=== PATIENT | male | born 1985 | race Caucasian/White ===

== ENCOUNTER 2019-01-25 11:30 | Emergency (ER) | payer SELFPAY ==
[~2019-01-25] VITALS: Ht 170.1 cm; Wt 83.0 kg
[~2019-01-25 11:30] MED LIST: CEPH500C PO; HYDR-1231 PO; NAPR-243 PO
--- NOTE | 2019-01-25 12:14 | ED GU-Female ---
General Chief Complaint: General Problems/Pain Stated Complaint: LOWER ABD/GROIN PAIN Nursing Triage Note: AMB TO [facility] REPORTS HAS HAD L LOWE ABD PAIN INTERMITTEN FOR 2 DAYS AT TIMES GOES DOWN BOTH R AND L GROWN. MOVEMENT MAKES IT WORSE. ADMITS TO USING METH 2 DAYS Nursing Sepsis Screen: No Definite Risk Source: patient Exam Limitations: no limitations History of Present Illness Date Seen by Provider: Jan 25, 2019 Time Seen by Provider: 12:14 Allergies and Home Medications Allergies Coded Allergies: tramadol (Unverified Allergy, Mild, HIVES, 06/19/13) Patient Home Medication List Home Medication List Reviewed: Yes Past Kboxrfy-Mizbce-Cmkodh Hx Patient Social History Alcohol Use: Regular Use Alcohol Beverage of Choice: Beer Recreational Drug Use: Yes (SMOKES POT DAILY) Smoking Status: Current Everyday Smoker Type Used: Cigars Recent Foreign Travel: No Contact w/Someone Who Travel: No Recent Infectious Disease Expo: No Past Medical History Reproductive Disorders: No Adverse Reaction/Blood Tranf: No Physical Exam Vital Signs Vital Signs - First Documented 01/25/19 11:34 Temp 36.2 Pulse 70 Resp 18 B/P (MAP) 146/85 (105) Pulse Ox 97 O2 Delivery Room Air Capillary Refill : Less Than 3 Seconds Height, Weight, BMI Height: 5'7" Weight: 170lbs. oz. 77.207394ny; 28.00 BMI Method:Stated Progress/Results/Core Measures Suspected Sepsis Recent Fever Within 48 Hours: No Infection Criteria Present: None New/Unexplained Altered Menta: No Sepsis Screen: No Definite Risk SIRS Temperature: Pulse: 70 Respiratory Rate: 18 Blood Pressure 146 /85 Mean: 105 Results/Orders Lab Results Laboratory Tests Test 01/25/19 12:33 Range/Units Urine Color YELLOW Urine Clarity CLEAR Urine pH 6.5 5-9 Urine Specific [place] 1.010 L 1.016-1.022 Urine Protein NEGATIVE NEGATIVE Urine Glucose (UA) NEGATIVE NEGATIVE Urine Ketones NEGATIVE NEGATIVE Urine Nitrite NEGATIVE NEGATIVE Urine Bilirubin NEGATIVE NEGATIVE Urine Urobilinogen NORMAL NORMAL MG/DL Urine Leukocyte Esterase NEGATIVE NEGATIVE Urine RBC (Auto) NEGATIVE NEGATIVE Urine RBC NONE /HPF Urine WBC NONE /HPF Urine Squamous Epithelial Cells RARE /HPF Urine Crystals NONE /LPF Urine Bacteria NEGATIVE /HPF Urine Casts NONE /LPF Urine Mucus NEGATIVE /LPF Urine Culture Indicated NO My Orders Orders - MIL RODRIGUEZ Ed Iv/Invasive Line Start (01/25/19 12:31) Ua Culture If Indicated (01/25/19 12:31) Ns Iv 1000 Ml (Sodium Chloride 0.9%) (01/25/19 12:31) Ketorolac Injection (Toradol Injection) (01/25/19 12:31) Vital Signs/I&O 01/25/19 01/25/19 11:34 13:12 Temp 36.2 Pulse 70 70 Resp 18 18 B/P (MAP) 146/85 (105) 146/85 Pulse Ox 97 97 O2 Delivery Room Air Room Air Capillary Refill : Less Than 3 Seconds Blood Pressure Mean: 105 POS Departure Departure-Patient Inst. Referrals: NO,LOCAL PHYSICIAN (PCP/Family) Primary Care Physician MIL RODRIGUEZ Jan 25, 2019 12:14 POS
[2019-01-25] MEDS ORDERED: NS IV 1000 ML 1,000 ML IV ONE (12:31)
[2019-01-25] MEDS ORDERED: KETOROLAC 30 MG/ML VIAL IVP STA (12:31)
[2019-01-25 12:38] LABS: BILIRUBIN,URINE NEGATIVE (NEGATIVE); CLARITY,URINE CLEAR; COLOR,URINE YELLOW; GLUCOSE, URINE (UA) NEGATIVE (NEGATIVE); KETONES,URINE NEGATIVE (NEGATIVE); LEUKOCYTE ESTERASE ,URINE NEGATIVE (NEGATIVE); NITRITE,URINE NEGATIVE (NEGATIVE); PH,URINE 6.5 (5-9); PROTEIN,URINE NEGATIVE (NEGATIVE)
[2019-01-25 12:49] LABS: BACTERIA,URINE NEGATIVE /HPF; SQUAMOUS EPITHELIAL CELL,UR RARE /HPF
--- NOTE | 2019-01-25 12:50 | NUR ---
TO ROOM TO START IV PATIENT ASKED HOW MUCH LONGER TOLD APX 2 HRS SAID I CAN'T BE HER THAT LONG I HAVE SOME PLACE TO BE. ASKED TO TALK WITH Jose POTTER.
--- NOTE | 2019-01-25 13:04 | NUR ---
Jose RODRIGUEZ IN ROOM TALKING WITH PATIENT.
[2019-01-25 13:12] VITALS: BP 146/85
--- NOTE | 2019-01-25 13:12 | NUR ---
SIGNED AMA DID NOT WANT TO WAIT
== END 2019-01-25 13:12 | disposition left against medical advice (07) ==
LOC: EDUNIT# 11:30 → ER 11:31
DX: R10.30 Lower abdominal pain, unspecified (principal); F17.290 Nicotine dependence, other tobacco product, uncomplicated; Z88.5 Allergy status to narcotic agent
CPT/HCPCS: 81000; 99282

== ENCOUNTER 2019-10-21 11:26 | Emergency (ER) | payer SELFPAY ==
[~2019-10-21] VITALS: Ht 170.2 cm; Wt 74.8 kg
[2019-10-21 11:39] VITALS: BP 124/79
[2019-10-21] MEDS ORDERED: HYDR-3870 PO (11:53)
[2019-10-21] MEDS ORDERED: DOXY100T2 PO (11:53)
--- NOTE | 2019-10-21 11:54 | ED Lower Extremity ---
General Stated Complaint: L LEG SWELLING/R HAND INJ Source: patient Exam Limitations: no limitations History of Present Illness Date Seen by Provider: Oct 21, 2019 Time Seen by Provider: 11:51 Initial Comments To ER with swelling and redness and pain to the left anterior lower leg for the past 4 days. Onset: other Severity: moderate Pain/Injury Location: left leg Method of Injury: unknown Modifying Factors: Worse With Movement Allergies and Home Medications Allergies Coded Allergies: tramadol (Unverified Allergy, Mild, HIVES, 06/19/13) Home Medications Doxycycline Hyclate 100 Mg Tablet, 100 MG PO BID Prescribed by: JENIFFER OSPINA on 10/21/19 1153 Hydrocodone/Acetaminophen 1 Each Tablet, 1 EACH PO Q4-6HR PRN for PAIN-MODERATE Prescribed by: JENIFFER OSPINA on 10/21/19 1154 Patient Home Medication List Home Medication List Reviewed: Yes Review of Systems Constitutional: see HPI EENTM: see HPI Respiratory: no symptoms reported Cardiovascular: no symptoms reported Genitourinary: no symptoms reported Musculoskeletal: no symptoms reported Skin: see HPI Psychiatric/Neurological: No Symptoms Reported Past Gkzdpkr-Ciypeh-Ixgdrb Hx Patient Social History Alcohol Beverage of Choice: Beer Type Used: Cigars Past Medical History Surgeries: Yes (left index finger amputation, right leg fx.) Orthopedic Respiratory: No Cardiac: No Neurological: No Reproductive Disorders: No Genitourinary: No Gastrointestinal: No Musculoskeletal: Yes (CTS) Fractures Endocrine: No Cancer: No Psychosocial: Yes Anxiety, Depression Adverse Reaction/Blood Tranf: No Family Medical History Cancer, Psychiatric Problems, Other Conditions/Hx Physical Exam Vital Signs Vital Signs - First Documented 10/21/19 11:39 Temp 36.8 Pulse 75 Resp 18 B/P (MAP) 124/79 (94) Pulse Ox 98 O2 Delivery Room Air Capillary Refill : Height, Weight, BMI Height: 5'7" Weight: 170lbs. oz. 77.635903rt; 28.00 BMI Method:Stated General Appearance: WD/WN, no apparent distress HEENT: PERRL/EOMI, normal ENT inspection Respiratory: no respiratory distress, no accessory muscle use Hips: bilateral hip non-tender, bilateral hip normal inspection, bilateral hip normal range of motion Legs: left leg other (5 cm erythematous fluctuant abscess overlying the anterior tibia on the left.) Knees: bilateral knee non-tender, bilateral knee normal inspection, bilateral knee normal range of motion Ankles: bilateral ankle non-tender, bilateral ankle normal inspection, bilateral ankle normal range of motion Feet: bilateral foot non-tender, bilateral foot normal inspection, bilateral foot normal range of motion Neurologic/Psychiatric: alert, normal mood/affect, oriented x 3 Procedures/Interventions I&D : Blade Size: 11 Progress Anesthetized with 2 mL of lidocaine without epinephrine. Incised with an 11 blade scalpel, loculations broken up as the wound was probed with a sterile Q- tip. Pt did not tolerated well, screaming, jerking during procedure. Appears under influence of stimulant. Progress/Results/Core Measures Results/Orders My Orders Orders - JENIFFER OSPINA APRN Hydrocodone/Apap 5/325 Tablet (Lortab 5 (10/21/19 12:00) Doxycycline Hyclate Tablet (Vibramycin T (10/21/19 12:00) Wound Culture (10/21/19 11:49) Lidocaine 1% Inj 20 Ml (Xylocaine 1% Inj (10/21/19 12:00) Medications Given in ED Current Medications Medications Dose Ordered Sig/Samara Route Start Time Stop Time Status Last Admin Dose Admin Acetaminophen/ Hydrocodone Bitart 1 tab ONCE ONCE PO 10/21/19 12:00 10/21/19 12:01 DC 10/21/19 11:59 1 TAB Lidocaine HCl 2 ml ONCE ONCE INJ 10/21/19 12:00 10/21/19 12:01 DC 10/21/19 12:00 2 ML Vital Signs/I&O 10/21/19 11:39 Temp 36.8 Pulse 75 Resp 18 B/P (MAP) 124/79 (94) Pulse Ox 98 O2 Delivery Room Air Departure Impression Primary Impression: Abscess of leg Disposition: HOME, SELF-CARE Condition: Stable Departure-Patient Inst. Decision time for Depature: 11:52 Referrals: NO,LOCAL PHYSICIAN (PCP/Family) Primary Care Physician Patient Instructions: Abscess Incision and Drainage (DC) Add. Discharge Instructions: 1. Antibiotics and pain medicine as directed. Return to ER for any concerns. Scripts Hydrocodone/Acetaminophen (Lorcet 5-325 mg Tablet) 1 Each Tablet 1 EACH PO Q4-6HR PRN for PAIN-MODERATE MDD 10 for 7 Days, #10 TAB Prov: JENIFFER OSPINA APRN 10/21/19 Doxycycline Hyclate (Doxycycline Hyclate) 100 Mg Tablet 100 MG PO BID, #20 TAB 0 Refills Prov: JENIFFER OSPINA APRN 10/21/19 JENIFFER OSPINA APRN Oct 21, 2019 11:54
[2019-10-21] MEDS ORDERED: HYDROcodone/APAP 5 MG/325 MG (LORTAB) TAB PO ONE (12:00)
[2019-10-21] MEDS ORDERED: DOXYCYCLINE 100 MG (VIBRAMYCIN) TABLET PO SCH (12:00)
[2019-10-21] MEDS ORDERED: LIDOCAINE 1% INJ 20 ML 20 ML VIAL INJ ONE (12:00)
--- OUTSIDE RECORDS SUMMARY | 2019-10-21 17:32 | XMS REPORT ---
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 62588990 ALLERGIES No Information ENCOUNTERS Encounter Location Date Diagnosis [facility] [address] [address] Jun, [facility] [address] [address] Jun, [facility] [address] [address] Dec, [facility] [address] [address] Dec, [facility] [address] [address] Dec, [facility] [address] [address] Dec, [place] [address] [place], [place] [id number] Nov, [facility] [address] [address] Nov, [place] [address] [place], [place] [id number] Sep, [facility] [address] [address] Sep, IMMUNIZATIONS No Known Immunizations SOCIAL HISTORY Never Assessed REASON FOR VISIT PLAN OF CARE VITAL SIGNS Height 67 in 2013-10-04 Weight 162 lbs 2013-10-04 Temperature 97.3 degrees Fahrenheit 2013-10-04 Heart Rate 76 bpm 2013-10-04 Respiratory Rate 16 2013-10-04 Blood pressure systolic 110 mmHg 2013-10-04 Blood pressure diastolic 68 mmHg 2013-10-04 MEDICATIONS Unknown Medications RESULTS No Results PROCEDURES No Known procedures INSTRUCTIONS MEDICATIONS ADMINISTERED No Known Medications
--- OUTSIDE RECORDS SUMMARY | 2019-10-21 17:32 | XMS REPORT | Continuity of Care Document ---
Author Organization Unknown Address Unknown Phone Unavailable Allergies Active Description Code Type Severity Reaction Onset Reported/Identified Relationship to Patient Clinical Status Yes tramadol [id number] Drug Allergy Mild HIVES 06/19/2013 Medications There is no data. Problems Date Dx Coded Attending Type Code Diagnosis Diagnosed By 09/02/2013 JENIFFER OSPINA APRN Ot 338.29 OTHER CHRONIC PAIN 09/02/2013 JENIFFER OSPINA APRN Ot 729 .5 PAIN IN LIMB 10/04/2013 YON RODRÍGUEZ APRN 296.90 MOOD DISORDER 10/04/2013 YON RODRÍGUEZ APRN 72 9.5 PAIN- LEG 10/04/2013 YON RODRÍGUEZ APRN 296.90 MOOD DISORDER 10/04/2013 YON RODRÍGUEZ APRN 72 9.5 PAIN- LEG 11/22/2013 YON RODRÍGUEZ APRN 46 1.9 SINUSITIS ACUTE 11/22/2013 YON RODRÍGUEZ APRN T 523.31 AGGRESSIVE PERIODONTITIS LOCALIZED 01/28/2019 MIL MORGAN Ot F17.290 NICOTINE DEPENDENCE, OTHER TOBACCO PRODU 01/28/2019 MIL MORGAN Ot R10.30 LOWER ABDOMINAL PAIN, UNSPECIFIED 01/28/2019 MIL MORGAN Ot Z88.5 ALLERGY STATUS TO NARCOTIC AGENT STATUS Procedures There is no data. Results Test Result Range Complete urinalysis with reflex to cultu re - 01/25/19 12:33 Urine color determination YELLOW NRG Urine clarity determination CLEAR NR G Urine pH measurement by test strip 6.5 5-9 Specific gravity of urine by test strip 1.010 1.016-1.022 Urine protein assay by test strip, semi-quantitative NEGATIVE NEGATIVE Urine glucose detection by automated test strip NE GATIVE NEGATIVE Erythrocytes detection in urine sediment by light micr oscopy NEGATIVE NEGATIVE Urine ketones detection by automated test strip NE GATIVE NEGATIVE Urine nitrite detection by test strip NEGATIVE NEGATIVE Urine total bilirubin detection by test strip NEGA TIVE NEGATIVE Urine urobilinogen measurement by automated test strip (mass/volume) NORMAL NORMAL Urine leukocyte esterase detection by dipstick NEG ATIVE NEGATIVE Automated urine sediment erythrocyte cou nt by microscopy (number/high power field) NONE NRG Automated urine sediment leukocyte count by microscopy (number/high power field) NONE NRG Bacteria detection in urine sediment by light microsco py NEGATIVE NRG Squamous epithelial cells detection in u rine sediment by light microscopy RARE NRG Crystals detection in urine sediment by light microsco py NONE NRG Casts detection in urine sediment by light microscopy NONE NRG Mucus detection in urine sediment by light microscopy NEGATIVE NRG Complete urinalysis with reflex to culture NO NRG Encounters ACCT No. Visit Date/Time Discharge Status Pt. Type Provider Facility Loc./Unit Complaint [id number] 09/08/2019 13:40:00 09/08/2019 23:59:5 9 CLS Outpatient LESLIE MARTINEZ APRN [facility] [id number] 10/21/2019 11:28:00 020 12:08:00 DIS Emergency JENIFFER OSPINA APRN [facility] ER L LEG SWELLING/R HAND I [place] [id number] 01/25/2019 11:31:00 019 13:12:00 DIS Outpatient MIL MORGAN [facility] ER LOWER ABD/GROIN PAIN [id number] 09/02/2013 12:10:00 014 13:21:00 DIS Emergency JENIFFER OSPINA APRN [facility] ER RIGHT LEG PAIN [id number] 06/19/2013 19:38:00 014 21:13:00 DIS Emergency [id number] 11/22/2013 09:09:00 11/22/2013 23:59: 59 CLS Outpatient YON RODRÍGUEZ APRN [id number] 10/04/2013 09:08:00 10/04/2013 23:59: 59 CLS Outpatient YON RODRÍGUEZ APRN
== END 2019-10-21 12:08 | disposition home or self-care (01) ==
LOC: EDUNIT# 11:26 → ER 11:28
DX: L02.416 Cutaneous abscess of left lower limb (principal)
CPT/HCPCS: 10060; 87070; 87077; 87186; 87205

== ENCOUNTER 2019-10-23 09:13 | Emergency (ER) | payer SELFPAY ==
[~2019-10-23] VITALS: Ht 170 cm; Wt 70.3 kg
[~2019-10-23 09:13] MED LIST changes: +DOXY100T2 PO; +HYDR-3870 PO
--- OUTSIDE RECORDS SUMMARY | 2019-10-23 09:19 | XMS REPORT | Continuity of Care Document ---
Author Organization Unknown Address Unknown Phone Unavailable Allergies Active Description Code Type Severity Reaction Onset Reported/Identified Relationship to Patient Clinical Status Yes tramadol [id number] Drug Allergy Mild HIVES 06/19/2013 Medications There [...] APRN T 523.31 AGGRESSIVE PERIODONTITIS LOCALIZED 01/28/2019 MLI MORGAN Ot F17.290 NICOTINE DEPENDENCE, OTHER TOBACCO [...] Status Pt. Type Provider Facility Loc./Unit Complaint [id number] 09/08/2019 13:40:00 09/08/2019 23:59:5 9 CLS Outpatient LESLIE MARTINEZ APRN WALK IN [facility] [id number] 10/21/2019 11:28:00 020 12:08:00 DIS Emergency JENIFFER OSPINA APRN [facility] ER L LEG SWELLING/R HAND I [place] [id number] 01/25/2019 11:31:00 019 13:12:00 DIS Outpatient MIL MORGAN [facility] ER LOWER ABD/GROIN PAIN [id number] 09/02/2013 12:10:00 014 13:21:00 DIS Emergency JENIFFER OSPINA APRN [facility] ER RIGHT LEG PAIN [id number] 06/19/2013 19:38:00 014 21:13:00 DIS Emergency [id number] 11/22/2013 09:09:00 11/22/2013 23:59: 59 CLS Outpatient YON RODRÍGUEZ APRN [id number] 10/04/2013 09:08:00 10/04/2013 23:59: 59 CLS Outpatient YON RODRÍGUEZ APRN
--- NOTE | 2019-10-23 09:30 | NUR ---
Pt called to rm by JAMES Noel, pt not in waiting room.
--- NOTE | 2019-10-23 09:34 | ED Integumentary General ---
General Stated Complaint: INFECTION SYMPTOMS Source: patient Exam Limitations: no limitations History of Present Illness Date Seen by Provider: Oct 23, 2019 Time Seen by Provider: 09:34 Initial Comments 33-year-old male presents with known left lower leg abscess and cellulitis. Patient was seen here on the evening of 10/21/19. Patient was offered drainage of the abscess at that time and got angry and had the provider stop. Patient was given a prescription for doxycycline. He states he's taken 3 of the pills. Patient was not something else for an antibiotic. Patient does not have any fevers chills nausea vomiting. Allergies and Home Medications Allergies Coded Allergies: tramadol (Unverified Allergy, Mild, HIVES, 06/19/13) Home Medications Doxycycline Hyclate 100 Mg Tablet, 100 MG PO BID Prescribed by: JENIFFER OSPINA on 10/21/19 1153 Hydrocodone/Acetaminophen 1 Each Tablet, 1 EACH PO Q4-6HR PRN for PAIN-MODERATE Prescribed by: JENIFFER OSPINA on 10/21/19 1154 Patient Home Medication List Home Medication List Reviewed: Yes Review of Systems Review of Systems Constitutional: No chills, No fever Respiratory: no symptoms reported Cardiovascular: no symptoms reported Gastrointestinal: no symptoms reported Genitourinary: no symptoms reported Skin: see HPI Past Gfoecyl-Wfqron-Lwwqyx Hx Past Med/Social Hx: Reviewed Nursing Past Med/Soc Hx Patient Social History Alcohol Beverage of Choice: Beer Drug of Choice: "SPEED" METH (SMOKES) Type Used: Cigars 2nd Hand Smoke Exposure: Yes Recent Foreign Travel: No Contact w/Someone Who Travel: No Recent Hopitalizations: No Past Medical History Surgeries: Yes (left index finger amputation, right leg fx.) Orthopedic Respiratory: No Cardiac: No Neurological: No Reproductive Disorders: No Genitourinary: No Gastrointestinal: No Musculoskeletal: Yes (CTS) Fractures Endocrine: No Cancer: No Psychosocial: Yes Anxiety, Depression Integumentary: No Blood Disorders: No Adverse Reaction/Blood Tranf: No Family Medical History Cancer, Psychiatric Problems, Other Conditions/Hx Physical Exam Vital Signs Capillary Refill : General Appearance: other (angry and uncooperative) Cardiovascular: normal peripheral pulses, regular rate, rhythm Respiratory: no respiratory distress, no accessory muscle use Neurologic/Psychiatric: alert, normal mood/affect, oriented x 3 Skin: other (approximate 4 cm abscess left anterior kuhn with some surrounding cellulitis along with another area of cellulitis on the mid upper thigh just above the knee.) Skin Problem Character: abscess Progress/Results/Core Measures Progress Progress Note : Time: 09:47 Progress Note Discussed with patient that I needed to open the abscess. Patient however refused and states he will do it himself. Patient is wanting an antibiotic. Informed him that I can add Bactrim however he did not want that. I will prescribe him clindamycin. He should follow-up with clinic tomorrow or the next day if symptoms are not improving. Patient was not very cooperative and refused most treatments. Departure Impression Primary Impression: Abscess of left lower extremity Additional Impression: Cellulitis of leg, left Disposition: 01 HOME, SELF-CARE Condition: Stable Departure-Patient Inst. Referrals: NO,LOCAL PHYSICIAN (PCP/Family) Primary Care Physician Patient Instructions: Cellulitis (Skin Infection), Adult (DC), Boil Add. Discharge Instructions: Please drain abscess couple times daily Scripts Clindamycin HCl (Clindamycin HCl) 300 Mg Capsule 300 MG PO TID, #30 CAP Prov: WALLY DIAZ DO 10/23/19 WALLY DIZA DO Oct 23, 2019 09:34
[2019-10-23 09:37] VITALS: BP 127/87
[2019-10-23] MEDS ORDERED: CLIN300C11 PO (09:52)
== END 2019-10-23 10:02 | disposition home or self-care (01) ==
LOC: EDUNIT# 09:13 → ER 09:14
DX: L02.416 Cutaneous abscess of left lower limb (principal); L03.116 Cellulitis of left lower limb; Z88.5 Allergy status to narcotic agent; F41.9 Anxiety disorder, unspecified; F32.9 Major depressive disorder, single episode, unspecified
CPT/HCPCS: 99283